=== PATIENT | male | born 1980 | race African-American/Black ===

== ENCOUNTER 2018-04-04 04:23 | Inpatient (IN) ==
[2018-04-04] MEDS ORDERED: ceFAZolin 2 GM Premix Inj 2 GM/50 ML PIGGYBACK IV.SIG ONE (04:33)
[2018-04-04] MEDS ORDERED: Propofol 1000 mg/100 ml Inj 1,000 MG/100 ML BOTTLE ONE (04:33)
[2018-04-04] MEDS ORDERED: Diphtheria/Tetanus/Pertussis Vaccine Inj 0.5 ML Syringe IM ONE (04:34)
[2018-04-04] MEDS ORDERED: fentaNYL Citrate Inj 100 MCG/2 ML Ampul ONE ×3 (04:44→17:44)
[2018-04-04 04:55] LABS: Baso % (Auto) 0.4 % (0.0-2.0); Eos # (Auto) 0.1 th/mm3 (0.0-0.4); Eos % (Auto) 1.3 % (0.0-4.0); Hematocrit 43.5 % (39.0-51.0); Hemoglobin 14.3 gm/dL (13.0-17.0); Lymph % (Auto) 37.5 % (9.0-44.0); Mean Corpuscular Hemoglobin 26.6 pg (27.0-34.0); Mean Corpuscular Volume 80.5 fL (80.0-100.0); Mono # (Auto) 0.3 th/mm3 (0.0-0.9); Mono % (Auto) 5.9 % (0.0-8.0); Neut % (Auto) 54.9 % (16.0-70.0); Platelet Count 235 th/mm3 (150-450); Red Cell Distribution Width 15.5 % (11.6-17.2); White Blood Count 5.4 th/mm3 (4.0-11.0)
[2018-04-04 05:10] LABS: Activated Partial Thrombo Time 21.4 sec (24.3-30.1); INR 1.1 Ratio; Prothrombin Time 11.4 sec (9.8-11.6)
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
[2018-04-04] MEDS ORDERED: Morphine Inj 4 MG/ML Vial IV.PUSH ONE ×2 (05:15→07:33)
[2018-04-04 05:16] LABS: Anion Gap 14 meq/L (5-15); Blood Urea Nitrogen 15 mg/dL (7-18); Calcium 8.3 mg/dL (8.5-10.1); Carbon Dioxide 23.4 meq/L (21.0-32.0); Chloride 106 meq/L (98-107); Glomerular Filtration Rate Greater Than 89 mL/min (>89); Glucose,Random 102 mg/dL (74-106); Potassium 3.4 meq/L (3.5-5.1); Sodium 143 meq/L (136-145)
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
[2018-04-04 05:21] LABS: Alcohol 235 mg/dL (0-5)
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
[2018-04-04] MEDS ORDERED: HYDROmorphone PF Inj 0.5 MG/0.5 ML Syringe IV.PUSH PRN (05:49)
[2018-04-04 06:14] LABS: Amphetamine Screen,Urine Neg (Neg); Barbiturate Screen,Urine Neg (Neg); Cannabinoid Screen,Urine Pos (Neg); Cocaine Screen,Urine Neg (Neg)
[2018-04-04 06:29] LABS: Opiate Screen,Urine Neg (Neg)
[2018-04-04] MEDS: Sod Chloride 0.9% Inj 1,000 ML IV.CONT SCH ×3 (07:08→21:52)
[2018-04-04] MEDS: Docusate Sodium 100 MG Capsule PO SCH ×2 (09:56→21:52)
[2018-04-04] MEDS: Multivitamin Inj 10 ML, Thiamine Inj 100 MG, Folic Acid Inj 1 MG in Sodium Chlor 0.9% I... IV.SIG SCH (09:58)
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
[2018-04-04] MEDS ORDERED: ceFAZolin 1 GM Premix Inj 0 GM/0 ML FROZ.PIGGY IV.SIG ONE (12:12)
[2018-04-04] MEDS ORDERED: Sodium Chlor 0.9% Inj 500 ML IV.CONT ONE (12:30)
[2018-04-04] MEDS ORDERED: Metoprolol Tartrate 25 MG Tablet PO ONE (12:30)
[2018-04-04] MEDS ORDERED: Chlorhexidine Gluconate 2% 1 Pack (2 Cloths) TOPICAL ONE (12:30)
[2018-04-04] MEDS ORDERED: Glycopyrrolate Inj 1 MG/5 ML Syringe IV.PUSH ONE (12:45)
[2018-04-04] MEDS ORDERED: Phenylephrine/NS 1000 MCG/10ML Syringe IV.PUSH ONE (12:45)
[2018-04-04] MEDS ORDERED: Neostigmine Inj 5 MG/5 ML Syringe IV.PUSH ONE (12:45)
[2018-04-04] MEDS ORDERED: Lidocaine PF 1% Inj 5 ML Syringe OTHER ONE (12:45)
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
[2018-04-04] MEDS ORDERED: Morphine Inj 4 MG/ML Vial ONE (17:44)
--- NOTE | 2018-04-04 17:48 | XR ---
EXAM DATE: 04/04/2018 5:43 PM EDT AGE/SEX: 37 years / Male INDICATIONS: Left ORIF radius and ulna. CLINICAL DATA: This is the patient's initial encounter. Patient reports that signs and symptoms have been present for 1 day and indicates a pain score of Nonresponsive. MEDICAL/SURGICAL HISTORY: None. None. COMPARISON: [facility] [place], [facility] LEFT 2V, 04/04/2018. . FINDINGS: 7 spot intraoperative fluoroscopic views of the forearm demonstrate plate and screw fixation across t he comminuted radial shaft fracture as well as plate and screw fixation across a comminuted ulnar sha ft fracture. A displaced ulnar styloid process fracture is seen. CONCLUSION: ORIF radius and ulnar fractures. Electronically signed by: Charles Yan MD 04/04/2018 5:46 PM EDT
[2018-04-04] MEDS ORDERED: Labetalol HCl Inj 100 MG/20 ML Vial ONE (18:02)
[2018-04-04] MEDS ORDERED: *morphine SULFATE 4 MG/ML PERIprocedure ONLY ONE (18:23)
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
[2018-04-04] MEDS: ceFAZolin Inj 2,000 MG in Sodium Chlor 0.9% Inj 80 ML IV.SIG SCH (21:53)
[2018-04-05] MEDS: HYDROmorphone PF Inj 2 MG/ML Vial IV.PUSH PRN ×3 (01:24→11:59)
[2018-04-05] MEDS: ceFAZolin Inj 2,000 MG in Sodium Chlor 0.9% Inj 80 ML IV.SIG SCH ×3 (04:14→19:47)
[2018-04-05 05:03] LABS: Hematocrit 34.3 % (39.0-51.0); Hemoglobin 11.5 gm/dL (13.0-17.0); Lymph # (Auto) 1.2 th/mm3 (1.0-4.8); Lymph % (Auto) 11.6 % (9.0-44.0); Mean Corpuscular HGB Conc 33.5 % (32.0-36.0); Mean Corpuscular Hemoglobin 26.7 pg (27.0-34.0); Mean Corpuscular Volume 79.5 fL (80.0-100.0); Mean Platelet Volume 8.3 fL (7.0-11.0); Mono # (Auto) 0.8 th/mm3 (0.0-0.9); Neut # (Auto) 8.4 th/mm3 (1.8-7.7); Neut % (Auto) 80.4 % (16.0-70.0); Platelet Count 206 th/mm3 (150-450); Red Blood Count 4.31 mil/mm3 (4.50-5.90); Red Cell Distribution Width 15.3 % (11.6-17.2); White Blood Count 10.5 th/mm3 (4.0-11.0)
[2018-04-05 05:23] LABS: Anion Gap 5 meq/L (5-15); Blood Urea Nitrogen 9 mg/dL (7-18); Carbon Dioxide 30.9 meq/L (21.0-32.0); Chloride 104 meq/L (98-107); Glomerular Filtration Rate Greater Than 89 mL/min (>89); Glucose,Random 148 mg/dL (74-106); Potassium 3.7 meq/L (3.5-5.1); Sodium 140 meq/L (136-145)
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
[2018-04-05] MEDS: Sod Chloride 0.9% Inj 1,000 ML IV.CONT SCH (08:01)
[2018-04-05] MEDS: Gabapentin 300 MG Capsule PO SCH ×3 (08:21→18:19)
[2018-04-05] MEDS: Docusate Sodium 100 MG Capsule PO SCH ×2 (08:21→20:37)
[2018-04-05] MEDS: oxyCODONE/Acetaminophen 10/325 Tablet PO PRN ×4 (08:21→23:01)
[2018-04-05] MEDS: Ketorolac Inj 30 MG/ML (IVP) Vial IV.PUSH SCH ×3 (08:22→20:37)
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
[2018-04-05] MEDS: Multivitamin Inj 10 ML, Thiamine Inj 100 MG, Folic Acid Inj 1 MG in Sodium Chlor 0.9% I... IV.SIG SCH (11:45)
[2018-04-06] MEDS: oxyCODONE/Acetaminophen 10/325 Tablet PO PRN ×2 (03:01→08:38)
[2018-04-06] MEDS: Ketorolac Inj 30 MG/ML (IVP) Vial IV.PUSH SCH ×2 (03:01→08:35)
[2018-04-06] MEDS: ceFAZolin Inj 2,000 MG in Sodium Chlor 0.9% Inj 80 ML IV.SIG SCH (03:01)
[2018-04-06 06:37] VITALS: TEMP 98.1
[2018-04-06] MEDS: Docusate Sodium 100 MG Capsule PO SCH (08:35)
[2018-04-06] MEDS: Gabapentin 300 MG Capsule PO SCH (08:35)
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
[2018-04-06 09:44] VITALS: BP 145/90; PULSE 62; RESP 18; O2SAT 99
== END 2018-04-06 10:30 | disposition home or self-care (01) ==
LOC: NEPE 04:23 → NEDA 05:54 → N06 07:52
PROVIDERS: ADMIT Surgery; ATTEND Surgery